=== PATIENT | male | born 1995 | race Caucasian/White ===

== ENCOUNTER 2020-01-13 20:23 | Emergency (ER) | payer OTHER, SELFPAY ==
[2020-01-13 20:31] VITALS: BP 157/79; PULSE 84; RESP 16; TEMP 36.1; O2SAT 95
--- NOTE | 2020-01-13 22:22 | ED.WOUNDLAC ---
HPI - Wound/Laceration General Chief Complaint: Animal Bite Stated Complaint: finger laceration Time Seen by Provider: 01/13/20 20:44 Source: patient Mode of arrival: ambulatory Limitations: no limitations History of Present Illness HPI narrative: Patient is a 24-year-old male who presents with laceration to left second digit from a dog bite. Patient reports bite was from his own dog, shots up-to-date. Patient's tetanus is up-to-date. Bleeding controlled with dressing. Full flexion and extension of distal tip of finger. Patient denies other injuries or complaints. Related Data Allergies Allergy/AdvReac Type Severity Reaction Status Date / Time No Known Allergies Allergy Verified 01/13/20 20:44 Review of Systems Review of Systems: Narrative: CONSTITUTIONAL: Denies fever, chills, or sweats. EYES: Denies visual changes, redness, or discharge. ENT: Denies rhinorrhea, congestion, sore throat, or otalgia. CARDIOVASCULAR: Denies chest pain, palpitations, or edema. RESPIRATORY: Denies cough or dyspnea. GASTROINTESTINAL: Denies abdominal pain, nausea, vomiting, or diarrhea. GENITOURINARY: Denies dysuria or hematuria. SKIN: Laceration to left second digit from dog bite MUSCULOSKELETAL: Denies back pain, joint pain, or myalgia. NEUROLOGIC: Denies headache, numbness, dizziness, or weakness. PSYCHIATRIC: Denies anxiety or depression. [facility] Past Medical History Medical History (Updated 01/13/20 @ 22:34 by TRAVIS Garcia) No significant past medical history Surgical History Surgical History (Updated 01/13/20 @ 22:25 by TRAVIS Garcia) No significant past surgical history Social History Social History (Updated 01/13/20 @ 22:26 by TRAVIS Garcia) Smoking status: Never smoker Alcohol intake: current Alcohol use details: occasional Substance use: never Living arrangements: with family Exam Narrative: Exam Narrative: GENERAL: Well-appearing, well-nourished, and in no acute distress. HEAD: Normocephalic, atraumatic. EYES: No redness or drainage. ENT: Mucous membranes pink and moist. CHEST: No respiratory distress. Clear to auscultation. HEART: Regular rate and rhythm. No murmur appreciated. Normal peripheral pulses. SKIN: Approximate 1.5 cm laceration to palmar surface at DIP. Flexion and extension intact, distal sensation intact. NEURO: No focal deficits. Alert and oriented x3. Gait steady. PSYCH: Normal affect. No signs of depression or anxiety. Course Vital Signs Vital signs: Vital Signs Temperature 36.1 C L 01/13/20 20:31 Pulse Rate 84 01/13/20 20:31 Respiratory Rate 16 01/13/20 20:31 Blood Pressure 157/79 H 01/13/20 20:31 Pulse Oximetry 95 01/13/20 20:31 Temperature 36.1 C L 01/13/20 20:31 Pulse Rate 84 01/13/20 20:31 Respiratory Rate 16 01/13/20 20:31 Blood Pressure 157/79 H 01/13/20 20:31 Pulse Oximetry 95 01/13/20 20:31 Reviewed. Patient has been instructed to follow-up with his PCP regarding his blood pressure. Procedures Laceration Laceration 1: Date: 01/13/20 Time: 22:31 Site: hand Side (If applicable): left Size (cm): 1.5 Description: linear Depth: simple, single layer Local Anesthetic: lidocaine 1% Amount of anesthesia used (mL): 3 Pre-repair: irrigated ====== Skin Level ====== Skin layer closed with: nylon Size (cm): 5-0 Number of sutures: 4 Technique: simple, interrupted ====== Subcutaneous Layer ====== ====== Muscle Layer ====== ====== Tendon Layer ====== MDM - Wound/Laceration MDM Narrative Medical decision making narrative: Patient's laceration was cleaned with Betadine, irrigated thoroughly. Patient's finger sutured loosely with 4 sutures. Patient to be started on Augmentin. Patient aware of signs and symptoms of infection. Patient placed in finger splint, sutures to be removed in 7 to 10 days. Pat
== END 2020-01-13 22:44 | disposition home or self-care (01) ==
PROVIDERS: Emergency Provider Nurse Practitioner
DX: S61.251A Open bite of left index finger without damage to nail, initial encounter (principal); W54.0XXA Bitten by dog, initial encounter
CPT/HCPCS: 12001; 99283